=== PATIENT | male | born 1985 | race Two or more races ===

== ENCOUNTER 2017-12-27 11:36 | Inpatient (IN) | payer SELFPAY ==
[~2017-12-27] VITALS: Ht 190.5 cm; Wt 75.3 kg
[2017-12-27] MEDS ORDERED: IV NS 0.9% 1,000 ML BAG IV ONE ×2 (12:00→14:30)
[2017-12-27] MEDS ORDERED: KETOROLAC TROMETHAMINE INJ 30 MG/ML VIAL IV ONE (12:00)
[2017-12-27] MEDS ORDERED: ONDANSETRON HCL/PF 4 MG/2 ML VIAL IVP ONE ×2 (12:00→18:30)
[2017-12-27] MEDS ORDERED: KETOROLAC TROMETHAMINE INJ 30 MG/ML VIAL ONE (12:11)
[2017-12-27] MEDS ORDERED: ONDANSETRON HCL/PF 4 MG/2 ML VIAL ONE ×2 (12:11→18:40)
[2017-12-27 12:12] LABS: BASOPHILS % (AUTO) 0.3 % (0.0-2.0); EOSINOPHILS % (AUTO) 0.1 % (0.0-6.0); HEMATOCRIT 47 % (39-51); LYMPHOCYTES # (AUTO) 1.3 /CMM (0.8-4.8); LYMPHOCYTES % (AUTO) 8.9 % (20.0-44.0); MEAN CORPUSCULAR HEMOGLOBIN 31 PG (26.0-33.0); MEAN CORPUSCULAR HGB CONC 34 g/dl (31.0-36.0); MEAN CORPUSCULAR VOLUME 89 fL (80-96); NEUTROPHILS # (AUTO) 12.2 /CMM (1.8-8.9); NEUTROPHILS % (AUTO) 83.7 % (43.0-81.0); PLATELET COUNT (AUTO) 238 /CMM (150-450); RDW COEFFICIENT OF VARIATION 11.4 (11.5-15.0); RED BLOOD CELL COUNT(AUTO) 5.25 MIL/uL (4.5-6.0); WHITE BLOOD COUNT (AUTO) 14.5 K/uL (4.3-11.0)
[2017-12-27 12:24] LABS: CALCIUM, SERUM 9.9 mg/dL (8.5-10.1); CREATININE 1.3 mg/dL (0.6-1.3); POTASSIUM 3.8 mmol/L (3.5-5.1)
--- NOTE | 2017-12-27 12:24 | NUR ---
DIFUSE ABDOMINAL PAIN SINCE LAST NIGHT. PT AAOX3, VSS, ABD PAIN 10/ WITH N/V. PT STS HE HAD RT HIP SX A MONTH AGO. LAST BM @ 0400 TODAY. PT SEEN & EVAL'D BY MELITA UP. MEDICATED FOR PAIN, PT SOFYA WELL.
[2017-12-27 12:29] LABS: ALBUMIN 3.9 g/dL (3.4-5.0); BILIRUBIN,DIRECT 0.1 mg/dL (0.0-0.2); BILIRUBIN,TOTAL 0.6 mg/dL (0.2-1.0); TOTAL PROTEIN, SERUM 7.7 g/dL (6.4-8.2)
[2017-12-27 12:40] LABS: INR 0.95 (0.85-1.15)
[2017-12-27] MEDS ORDERED: CT SWABBABLE VALVE TRANS SET 1 EA INFUS.SET MC ONE (13:09)
[2017-12-27] MEDS ORDERED: IOHEXOL-300 100 ML VIAL IV ONE (13:09)
[2017-12-27] MEDS ORDERED: IV NS 0.9% 250 ML IV ONE (13:09)
[2017-12-27] MEDS ORDERED: PIPERACILLIN /TAZOBACTAM 3.375 G in IV D5W 50 ML IV ONE (14:30)
--- NOTE | 2017-12-27 14:30 | NUR ---
PT RESTING, EASILY AWAKEN WITH VERBAL STIMULI. PT STS ABD PAIN 06/16 & SOFYA WELL. STS " I FEEL BETTER ". DENIES CP, SOB, DIZZINESS, N/V/D @ THIS TIME. WILL CONT TO MONITOR.
[2017-12-27 16:29] LABS: APPEARANCE,URINE Clear (CLEAR); BILIRUBIN,URINE Negative (NEGATIVE); BLOOD, URINE Negative Ery/uL (NEGATIVE); COLOR,URINE Yellow (YELLOW); KETONES,URINE Negative (NEGATIVE); LEUKOCYTE ESTERASE ,URINE Negative (NEGATIVE); NITRITE, URINE Negative (NEGATIVE); PH,URINE 8.5 (5.0-8.0); PROTEIN,URINE Negative (NEGATIVE); UGLUCOSE Negative (NEGATIVE); UROBILINOGEN,URINE 0.2 EU/dL (0.2)
--- NOTE | 2017-12-27 16:56 | NUR ---
CALLED [facility] PAGED DR ARRIOLA FOR THIS PATIENT
--- NOTE | 2017-12-27 16:58 | NUR ---
CALLED NURSING SUP REQUESTED MED SURG BED FOR THIS PATIENT
[2017-12-27] MEDS ORDERED: IV D5/0.45 NACL 1,000 ML IV PRN (17:19)
[2017-12-27] MEDS ORDERED: MORPHINE SULFATE INJ 2 MG/ML DISP.SYRIN IV PRN (17:30)
[2017-12-27] MEDS ORDERED: MAGNESIUM HYDROXIDE 30 ML UDC PO PRN (17:30)
[2017-12-27] MEDS ORDERED: HYDROCODONE/APAP 5/325MG 1 EACH TABLET PO PRN (17:30)
[2017-12-27] MEDS ORDERED: MAG HYDROX/AL HYDROX/SIMETH 30 ML UDC PO PRN (17:30)
[2017-12-27] MEDS ORDERED: ONDANSETRON HCL/PF 4 MG/2 ML VIAL IVP PRN (17:30)
[2017-12-27] MEDS ORDERED: Z GUARD REMEDY 2 OZ OINT TP PRN (17:30)
[2017-12-27] MEDS ORDERED: ZOLPIDEM TARTRATE 5 MG TABLET PO PRN (17:30)
--- NOTE | 2017-12-27 17:49 | NUR ---
PT ADMIT TO ROOM 315-1 YOMI TOMLINSON
[2017-12-27] MEDS ORDERED: IV D5/ 0.9% NACL 1,000 ML IV ONE (18:00)
[2017-12-27] MEDS ORDERED: MORPHINE SULFATE INJ 2 MG/ML DISP.SYRIN IV ONE (18:30)
[2017-12-27] MEDS ORDERED: MORPHINE SULFATE INJ 4 MG/ML DISP.SYRIN ONE (18:40)
--- NOTE | 2017-12-27 19:45 | NUR ---
MS/RN RECEIVE PATIENT FROM E.R. VIA WHEELCHAIR, PATIENT IS AWAKE, ALERT, ORIENTED X4, COMFORTABLE, NO C/O PAIN, NO DISTRESS NOTED, ADMISSION DONE PER PROTOCOL, REFUSED SKIN CHECK, AGREED TO HAVE PHOTO TAKEN OF THE SURGICAL SITE AT RT. LATERAL THIGH. PLAN OF CARE DISCUSSED, VERBALIZED UNDERSTANDING AND AGREEMENT, NPO STATUS, TAUGHT THE USE OF CALL LIGHT AND PLACED IT AT BEDSIDE WITHIN REACH, ORDERS CARRIED OUT. WILL MONITOR.
[2017-12-27 20:00] VITALS: BP 116/60
[2017-12-27 21:00] VITALS: BP 116/60
[2017-12-28] MEDS: PIPERACILLIN /TAZOBACTAM 3.375 G in IV D5W 50 ML IV SCH ×4 (00:06→17:18)
--- NOTE | 2017-12-28 01:36 | NUR ---
MS/RN PATIENT IS SLEEPING AT THIS TIME, EASILY AROUSABLE, APPEAR COMFORTABLE, NO SIGNS OF DISTSRESS NOTED, CALL LIGHT IN REACH. WILL CONTINUE TO MONITOR.
[2017-12-28] MEDS: ACETAMINOPHEN 325 MG TABLET PO PRN ×2 (02:24→09:33)
--- NOTE | 2017-12-28 02:28 | NUR ---
MS/RN C/O HEADACHE, TYLENOL 650 MG PO WAS GIVEN ORDERED. WILL MONITOR.
--- NOTE | 2017-12-28 03:30 | NUR ---
MS/RN PATIENT IS SLEEPING, AROUSABLE, APPEAR COMFORTABLE, NO DISTRESS NOTED, CALL LIGHT IN REACH. WILL CONTINUE TO MONITOR.
--- NOTE | 2017-12-28 06:08 | NUR ---
MS/RN PATIENT IS AWAKE AT THIS TIME, COMFORTABLE, NO C/O PAIN, NO DISTRESS NOTED, CALL LIGHT IN REACH. ALL NEEDS ATTENDED AT THIS TIME. WILL CONTINUE TO MONITOR.
[2017-12-28 06:20] LABS: BASOPHILS % (AUTO) 0.4 % (0.0-2.0); EOSINOPHILS % (AUTO) 0.8 % (0.0-6.0); HEMATOCRIT 40 % (39-51); HEMOGLOBIN 13.1 g/dL (13.5-17.5); LYMPHOCYTES # (AUTO) 1.8 /CMM (0.8-4.8); MEAN CORPUSCULAR HEMOGLOBIN 31 PG (26.0-33.0); MEAN CORPUSCULAR HGB CONC 33 g/dl (31.0-36.0); MEAN CORPUSCULAR VOLUME 93 fL (80-96); MONOCYTES # (AUTO) 0.7 /CMM (0.1-1.30); MONOCYTES % (AUTO) 7.6 % (2.0-12.0); NEUTROPHILS # (AUTO) 6.8 /CMM (1.8-8.9); NEUTROPHILS % (AUTO) 72.2 % (43.0-81.0); PLATELET COUNT (AUTO) 197 /CMM (150-450); RDW COEFFICIENT OF VARIATION 12.3 (11.5-15.0); RED BLOOD CELL COUNT(AUTO) 4.27 MIL/uL (4.5-6.0); WHITE BLOOD COUNT (AUTO) 9.4 K/uL (4.3-11.0)
[2017-12-28 06:29] LABS: ALBUMIN 2.7 g/dL (3.4-5.0); BILIRUBIN,TOTAL 0.5 mg/dL (0.2-1.0); CALCIUM, SERUM 8.3 mg/dL (8.5-10.1); CREATININE 1.2 mg/dL (0.6-1.3); MAGNESIUM 1.8 mg/dL (1.8-2.4); PHOSPHORUS 3.1 mg/dL (2.5-4.9); POTASSIUM 3.8 mmol/L (3.5-5.1)
--- NOTE | 2017-12-28 07:11 | NUR ---
MS RN OPENING NOTE RECEIVED PATIENT IN BED. ALERT ORIENTED X4, ON ROOM AIR TOLERATING WELL. IN NO APPARENT DISTRESS OR DISCOMFORT AT THIS TIME. RESPIRATION EVEN AND UNLABORED. DENIES PAIN AND SOB AT THIS TIME. ABLE TO COMMUNICATE NEEDS. PATIENT USES URINAL FOR ELIMINATION, USES CRUTCHES TO AMBULATE. LEFT AC 20G IVC WITH FLUIDS RUNNING AT 125ML/HR. PATIENT IS NPO AT THIS TIME. AWAITING SURGICAL CONSULT WITH DR. ANDERSON. ABLE TO COMMUNICATE NEEDS. KEPT CLEAN AND COMFORTABLE. ALL NEEDS ATTENDED. SAFETY MEASURES IN PLACE, BED IN LOW LOCKED POSITION, SIDE RAILS UP X2, CALL LIGHT WITHIN EASY REACH. WILL CONTINUE TO MONITOR.
[2017-12-28 08:00] VITALS: BP 96/55
[2017-12-28] MEDS ORDERED: PANTOPRAZOLE 40 MG VIAL IV SCH (09:00)
[2017-12-28] MEDS ORDERED: MORPHINE SULFATE INJ 4 MG/ML DISP.SYRIN IV PRN (11:02)
--- NOTE | 2017-12-28 12:00 | NUR ---
RECEIVED ORDER FROM DR. ARRIOLA TO ADVANCE PATIENT'S DIET SLOWLY TOLERATED TO REGULAR DIET. WILL CARRY OUT AND CONTINUE TO MONITOR.
[2017-12-28] MEDS ORDERED: METR500T PO (12:26)
[2017-12-28] MEDS ORDERED: HYDR-552 PO (12:26)
[2017-12-28] MEDS ORDERED: CIPR500T5 PO (12:26)
--- NOTE | 2017-12-28 13:00 | NUR ---
PATIENT TOLERATED CLEAR LIQUIDS. NO ABDOMINAL PAIN NO NAUSEA VOMITING REPORTED. WILL ADVANCE THE DIET MORE AND CONTINUE TO MONITOR.
[2017-12-28 16:00] VITALS: BP 108/50
--- NOTE | 2017-12-28 16:00 | NUR ---
PATIENT WAS ADVANCED TO FULL LIQUID DIET, TOLERATED WELL. THEN ADVANCED TO SOFT DIET. TOLERATED WELL. DENIES ABDOMINAL PAIN, NAUSEA VOMITING. WILL ADVANCE TO REGULAR DIET FOR DINNER PER DR. ARRIOLA'S ORDER AND CONTINUE TO MONITOR.
--- NOTE | 2017-12-28 18:37 | NUR ---
MS RN CLOSING NOTE PATIENT IN BED. ALERT ORIENTED X4, ON ROOM AIR TOLERATING WELL. IN NO APPARENT DISTRESS OR DISCOMFORT AT THIS TIME. RESPIRATION EVEN AND UNLABORED. DENIES PAIN AND SOB AT THIS TIME. ABLE TO COMMUNICATE NEEDS. PATIENT USES URINAL FOR ELIMINATION, USES CRUTCHES TO AMBULATE. LEFT AC 20G IVC WITH FLUIDS RUNNING AT 125ML/HR. PATIENT WAS ABLE TO TOLERATE DIET THAT WAS ADVANCED SLOWLY. BACK TO REGULAR DIET. NO COMPLAINS OF ABDOMINAL PAIN, NAUSEA OR VOMITING. PATIENT HAS ORDER FOR DISCHARGE IF DIET IS TOLERATED. DISCHARGE PAPERWORK WAS PREPARED. ABLE TO COMMUNICATE NEEDS. KEPT CLEAN AND COMFORTABLE. ALL NEEDS ATTENDED. SAFETY MEASURES IN PLACE, BED IN LOW LOCKED POSITION, SIDE RAILS UP X2, CALL LIGHT WITHIN EASY REACH. WILL ENDORSE TO PM NURSE TO CONTINUE TO MONITOR AND FINALIZE DISCHARGE PAPERWORK.
--- NOTE | 2017-12-28 19:35 | NUR ---
MS/RN OPENING NOTES PT RECEIVED, A/OX3. ON ROOM AIR, BREATHING EVEN AND UNLABORED. DENIES PAIN, N/V. IV TO LAC PATENT AND INTACT RUNNING IVF ORDERED. PT FOR DC. AWARE AND VERBALIZES UNDERSTANDING OF PLAN. 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 WILL CONTINUE TO MONITOR
--- NOTE | 2017-12-28 20:38 | NUR ---
MS/RN NOTES PT'S FRIEND ARRIVED TO UNIT. CAR PULLED UP IN FRONT OF HOSPITAL. PT ESCORTED DOWN WITH PICKING MACHINE OPERATOR HELPER VIA WHEELCHAIR IN STABLE CONDITION. STILL DENIES N/V. DISCHARGE PAPERWORK, PRESCRIPTION AND BELONGINGS SENT DOWN WITH PATIENT. COPIES IN THE CHART. DISCHARGE PLAN REVIEWED AGAIN. PT VERBALIZES UNDERSTANDING. Addendum: 12/28/17 at 2050 by OLIVIER BARON RN PT IV AND ID BAND REMOVED.
== END 2017-12-28 20:25 | disposition home or self-care (01) | DRG 872 ==
LOC: ER 11:37 → MED 17:59
PROVIDERS: ADMIT Student in an Organized Health Care Education/Training Program; ATTEND Student in an Organized Health Care Education/Training Program
DX: A41.9 Sepsis, unspecified organism (principal); E87.2 Acidosis; E87.1 Hypo-osmolality and hyponatremia; D72.829 Elevated white blood cell count, unspecified; K76.0 Fatty (change of) liver, not elsewhere classified; Z87.891 Personal history of nicotine dependence; Z98.890 Other specified postprocedural states
CPT/HCPCS: 36415; 71045-TC; 76700-TC; 80048-TC; 80053-TC; 80076-TC; 81000-TC; 83605-TC; 83690-TC; 83735-TC; 84100-TC; 85025-TC; 85730-TC; 87040-TC; 87081-TC; 87086-TC; A4606; C9113; J1885; J2270; J2405; J2543; J3490; J7030; J7042; J7050; J7060; Q9967; Z7610